=== PATIENT | male | born 1990 | race Caucasian/White ===

== ENCOUNTER 2021-03-26 18:57 | Emergency (ER) | payer SELFPAY ==
[2021-03-26 18:58] VITALS: BP 153/71; PULSE 71; RESP 16; TEMP 36.6; O2SAT 97; BMI 32.5
--- NOTE | 2021-03-26 19:46 | CT_ITS ---
STUDY: CT ABDOMEN AND PELVIS WITHOUT CONTRAST REASON FOR EXAM: Male, 30 years old. Kidney Stone RADIATION DOSAGE (If Supplied By Facility): CTDIvol = ( 13.90 ) mGy, DLP = ( 781.53 ) mGycm TECHNIQUE: Transaxial images were obtained from the dome of the diaphragm to the symphysis pubis without oral contrast, and without intravenous contrast. Sagittal and coronal images were reconstructed. Individualized dose optimization techniques were used for this CT. COMPARISON: None. FINDINGS: The visualized lung bases are unremarkable. The visualized portions of the heart are within normal limits. Normal liver. Normal gallbladder and extrahepatic biliary system. Normal spleen. Normal pancreas. Normal bilateral adrenal glands. Multiple small bilateral nonobstructing calyceal renal stones one at the right lower pole kidney one of the left lower pole kidney. There is a 7 mm obstructing stone in the distal left ureter with moderate left hydroureteronephrosis. Normal visualized stomach. Normal small intestine. Normal colon. The appendix is visualized and appears normal. Normal abdominal aorta. Normal inferior vena cava. Normal retroperitoneum. Normal urinary bladder. Normal visualized prostate gland. Normal abdominal wall. Normal osseous structures. CT/Abdomen/Pelvis without Cont IMPRESSION: 7 mm obstructing stone in the distal left ureter with moderate left hydroureteronephrosis. Electronically Signed: Sean Leija MD at 21:08 EDT Tel , Service support ,
[2021-03-26] MEDS: Ondansetron 4 MG/2 ML Vial IV (20:06)
[2021-03-26] MEDS: 0.9% Normal Saline 1,000 ML 250 ML IV (20:06)
[2021-03-26] MEDS: Ketorolac 15 MG/ML Vial IV (20:07)
[2021-03-26 20:17] LABS: Squamous Epithelial Cells - UA 0 SEEN /hpf (0-5)
[2021-03-26 20:18] LABS: Basophil# 0.03 X10^3/uL; Basophil% 0.3 % (0-1); Eosinophil# 0.16 X10^3/uL; Eosinophils% 1.8 % (0-5); Hematocrit 38.9 % (40-54); Hemoglobin 12.9 g/dL (13.0-16.5); Lymphocyte % 19.9 % (19-41); Mean Corp Hgb Conc 33.2 g/dL (32-36); Mean Corpuscular Hgb 28.9 pg (27.0-32.0); Mean Platelet Vol. 9.9 fl (6.2-12.0); Monocyte# 1.06 X10^3/uL; Monocyte% 11.7 % (0-10); NRBC Flagged by Analyzer 0 % (0-5); Neutrophil # 5.97 X10^3/uL (2.7-7.7); Platelet Count 221 K/mm3 (150-450); RBC Distribution Width CV 12.5 % (11.6-14.6); RBC Distribution Width SD 39.7 fl (35.1-43.9); Red Blood Count 4.47 M/mm3 (4.6-6.2); White Blood Count 9.1 K/mm3 (4.4-11.0)
[2021-03-26 20:20] LABS: Color, Urine Yellow (Yellow); Glucose, Dipstick Normal (Normal); Ketone-Dipstick Negative (Negative); Leukocyte Esterase-Dipstick Negative /ul (Negative); Nitrite-Dipstick Negative (Negative); Occult Blood-Urine 150 /ul (Negative); Protein-Dipstick 15 mg/dl (Negative); Urine Bilirubin Dipstick Negative (Negative); Urine Clarity Clear (Clear); Urine Urobilinogen Normal (Normal)
--- NOTE | 2021-03-26 20:35 | ED.VIS.GI ---
HPI HPI - GI History of Present Illness Chief Complaint: Flank Pain Narrative Narrative: Patient presenting for evaluation secondary to flank pain. Patient reports that he does have an underlying history of kidney stones around 6 months ago. Patient states that over the course of about the last week he has been dealing with symptoms consistent with a left-sided kidney stone. He reports that a week ago he had some hematuria the day following he started to develop some left-sided flank pain. It is left-sided radiates down into his pelvis and into his testicles. This been associated with urinary frequency. Patient denies any fevers. Patient denies any nausea or vomiting. Patient states that the pain got worse tonight which is why presented to the emergency department. Review of systems otherwise negative. [facility] Medical History Kidney stones Home Medications clindamycin HCl [Cleocin HCl] 300 mg PO Q6H #40 capsule 02/18/17 [Rx Last Taken Unknown] oxycodone-acetaminophen 1 - 2 tab PO Q6H PRN PRN #12 tab 02/18/17 [Rx Last Taken Unknown] oxycodone-acetaminophen [Percocet] 1 tab PO Q6H PRN 3 Days #12 tab 03/26/21 [Rx Last Taken Unknown] tamsulosin [Flomax] 0.4 mg PO DAILY #10 cap 03/26/21 [Rx Last Taken Unknown] Allergy/AdvReac Type Severity Reaction Status Date / Time acetaminophen [From Vicodin] Allergy Hives Verified 03/26/21 19:00 codeine Allergy Hives Verified 03/26/21 19:00 hydrocodone [From Vicodin] Allergy Hives Verified 03/26/21 19:00 morphine Allergy Hives Verified 03/26/21 19:00 prednisone AdvReac Other Verified 03/26/21 19:00 Social History Smoking Status: Current every day smoker tobacco type: cigarettes ROS ROS ED Constitutional Constitutional ED: Denies chills or fever(s) ENT ENT ED: Denies sore throat Cardiovascular Cardiovascular: Denies chest pain Respiratory/Chest Respiratory/Chest: Denies cough or dyspnea Gastrointestinal Gastrointestinal: Denies abdominal pain, constipation, diarrhea or nausea Genitourinary Genitourinary ED: Reports hematuria, urinary frequency and other Details: Left flank pain Musculoskeletal Musculoskeletal: Denies myalgias Integumentary Denies rash Neurologic Neurologic: Denies paresthesias or weakness Psychiatric Psychiatric: Denies depression Endocrine Endocrinology: Denies polyuria Hematologic/Lymphatic Hematologic/Lymphatic: Denies easy bleeding or easy bruising Allergic/Immunologic Allergic/Immunologic ED: Denies urticaria EXAM Physical Exam Const Vital Signs: 03/26/21 18:58 Temperature 98 F Temperature Source Temporal Pulse Rate 71 Respiratory Rate 16 Blood Pressure 153/71 H Blood Pressure Mean 98 Pulse Ox 97 Oxygen Delivery Method Room Air Positive well nourished and well developed General Appearance ED: well developed and NAD HEENT normocephalic and atraumatic Eyes EOMs intact bilaterally General Eye ED: Negative for pale conjunctiva or scleral icterus Neck no lymphadenopathy and supple Resp normal respiratory effort and clear to auscultation bilaterally Cardio regular rate, regular rhythm, no murmurs and peripheral pulses 2+ throughout GI non-distended and no masses GI Narrative: Very minimal left lower quadrant abdominal tenderness Palpation: soft and tender LLQ; Negative for guarding, rigid or rebound tenderness present Back/Spine no CVA tenderness Extremity full ROM General Extremety ED: Negative for edema General Extremity: Negative for edema Neuro moves all extremities and no sensory deficits noted Sensorium / Orientation: alert, oriented to person, oriented to place and oriented to time Motor Exam: strength 5/5 throughout Psych mental status grossly normal Skin Rashes: no rashes MDM MDM MDM Narrative Medical decision making narrative: Patient presented secondary to flank pain and concern for the possibility of a kidney stone. IV was tablets patient was given Toradol Zofran and fluids. CBC does not demonstrate a leukocytosis, chemistry demonstrates patient have a creatinine of 1.4 I do not have a prior baseline to compare this to. No significant electrolyte derangements. Urinalysis shows only blood no leukocytes. CT abdomen and pelvis shows a 7 mm obstructing stone in the distal left ureter with some moderate hydronephrosis. Repeat evaluation of the patient at 2130 shows him to have significant symptomatic improvement. At this point given the patient's improvement of pain, lack of infection I do believe these appropriate to go home. 7 mm stone is on the upper limits of what the patient might be able to pass, so I did recommend that he is absolutely going to need to follow-up with a urologist. I also do not have a baseline creatinine to know if he is dealing with any sort of acute kidney injury. He was hydrated in the emergency department. He was educated on signs and symptoms for which to return. He was sent home with a course of Percocet and Flomax. Patient was discharged in improved condition. Lab Data Labs: Laboratory Results - last 24 hr 03/26/21 03/26/21 03/26/21 20:05 20:10 20:10 WBC 9.1 RBC 4.47 L Hgb 12.9 L Hct 38.9 L MCV 87.0 MCH 28.9 MCHC 33.2 RDW Std Deviation 39.7 RDW Coeff of Syed 12.5 Plt Count 221 MPV 9.9 Immature Gran % (Auto) 0.300 Neut % (Auto) 66.0 Lymph % (Auto) 19.9 Coffee % (Auto) 11.7 H Eos % (Auto) 1.8 Baso % (Auto) 0.3 Absolute Neuts (auto) 6.0 Absolute Lymphs (auto) 1.80 Nucleated RBC % 0 Sodium 141 Potassium 3.7 Chloride 106 Carbon Dioxide 29.0 Anion Gap 6 BUN 16 Creatinine 1.46 H Estim Creat Clear Calc 72.64 Est GFR (MDRD) Af Amer 72 Est GFR (MDRD) Non-Af 59 L BUN/Creatinine Ratio 11.0 Glucose 98 Calcium 8.9 Urine Color Yellow Urine Clarity Clear Urine pH 6.0 Ur Specific [place] 1.030 Urine Protein 15 H Urine Glucose (UA) Normal Urine Ketones Negative Urine Occult Blood 150 H Urine Nitrite Negative Urine Bilirubin Negative Urine Urobilinogen Normal Ur Leukocyte Esterase Negative Radiography Diagnostic Testing: Radiology Impression Abdomen/Pelvis CT 03/26/21 19:46 IMPRESSION: 7 mm obstructing stone in the distal left ureter with moderate left hydroureteronephrosis. Electronically Signed: Sean Leija MD at 21:08 EDT Tel , Service support , Discharge Plan Triage Chief Complaint: Flank Pain ED Provider: Bebeto Fontenot Dx/Rx/DC Orders Clinical Impression: Urolithiasis Instructions: ED Kidney Stone w/ Colic Prescriptions: New tamsulosin [Flomax] 0.4 mg capsule 0.4 mg PO DAILY Qty: 10 RF: 0 oxycodone-acetaminophen [Percocet] 5-325 mg tablet 1 tab PO Q6H PRN (Reason: pain) 3 Days Qty: 12 RF: 0 No Action clindamycin HCl [Cleocin HCl] 300 MG capsule 300 mg PO Q6H Qty: 40 RF: 0 oxycodone-acetaminophen 1 TABLET tablet 1 - 2 tab PO Q6H PRN PRN (Reason: Pain) Qty: 12 RF: 0 Primary Care Provider: Care Physician,No Primary Referrals: Mehrdad Villasenor MD [STAFF PHYSICIAN] - 3-5 Days Care Physician,No Primary [Primary Care Provider] - Disposition Disposition: Home, Self Care
[2021-03-26 20:36] LABS: Anion Gap 6 (5-15); BUN 16 mg/dL (7-18); Calcium,Total 8.9 mg/dL (8.5-10.1); Chloride 106 mmol/L (98-107); Creatinine, Serum 1.46 mg/dL (0.70-1.30); EST Glomerular Filtration Rate 59 mL/min (>60); Est Glom Filt Rate - Afr Amer 72 mL/min (>60); Estimated Creatinine Clearance 72.64 ml/min; Glucose 98 mg/dL (74-106); Potassium 3.7 mmol/L (3.5-5.1); Sodium Level 141 mmol/L (136-145)
[2021-03-26 22:18] LABS: Red Blood Cells-Urine 10-25 SEEN /hpf (0-5); White Blood Cells 5-10 SEEN /hpf (0-5)
[2021-03-26 22:19] LABS: Bacteria RARE /hpf (None Seen); Mucous, Urine 1+ /hpf (<or=2+)
== END 2021-03-26 21:45 | disposition home or self-care (01) ==
PROVIDERS: Emergency Provider Emergency Medicine
DX: N13.2 Hydronephrosis with renal and ureteral calculous obstruction (principal); Z87.442 Personal history of urinary calculi; F17.210 Nicotine dependence, cigarettes, uncomplicated
CPT/HCPCS: 74176; 80048; 81001; 85025; 96361; 96374; 96375; 99282; J7030; J2405

== ENCOUNTER 2021-05-01 16:38 | Emergency (ER) | payer SELFPAY ==
[2021-05-01 16:39] VITALS: BP 154/88; PULSE 59; RESP 14; TEMP 36.8; O2SAT 100; BMI 34.2
--- NOTE | 2021-05-01 17:13 | ED.VIS.GI ---
HPI HPI - GI History of Present Illness Chief Complaint: Flank Pain Informant: patient and spouse/S.O. Abdominal Pain/Flank Pain Onset: Days Context: Gradual Onset Timing: Intermittent Quality: Sharp Location: Left Flank Current Severity: Gone Maximum Severity: Moderate Nausea/Vomiting/Emesis GI Symptom: Negative for Nausea and Vomiting Diarrhea/Melena/Hematochezia GI Symptom: Negative for Diarrhea, Melena and Hematochezia Associated Symptoms Associated Symptoms: Positive for Hematuria; Negative for Dysuria, Frequency and Urgency Narrative Narrative: 30-year-old male with a no. History of kidney stones. States he believes this is his fifth kidney stone. Is never needed surgery. Says since 3 AM this morning he had gross hematuria. He did have left flank pain on Thursday it resolved to return today. He denies vomiting or diarrhea. No fever. Prior similar symptoms: Yes Recent Illness/Hospitalization: No PFSH PFSH Medical History Kidney stones Home Medications cephalexin 500 mg PO Q6H 7 Days #28 cap 05/01/21 [Rx Last Taken Unknown] oxycodone-acetaminophen [Percocet] 1 tab PO Q4H PRN 4 Days #14 tab 05/01/21 [Rx Last Taken Unknown] Allergy/AdvReac Type Severity Reaction Status Date / Time acetaminophen [From Vicodin] Allergy Hives Verified 05/01/21 16:39 codeine Allergy Hives Verified 05/01/21 16:39 hydrocodone [From Vicodin] Allergy Hives Verified 05/01/21 16:39 morphine Allergy Hives Verified 05/01/21 16:39 prednisone AdvReac Other Verified 05/01/21 16:39 Social History Smoking Status: Current every day smoker tobacco type: cigarettes ROS ROS ED ROS Narrative Left flank pain. Review of Systems ROS Unobtainable: Denies due to encephalopathy Constitutional Constitutional ED: Denies chills, fever(s) or subjective ENT ENT ED: Denies ear pain, rhinorrhea or sore throat Cardiovascular Cardiovascular: Denies chest pain Respiratory/Chest Respiratory/Chest: Denies cough or dyspnea Gastrointestinal Gastrointestinal: Reports abdominal pain Genitourinary Genitourinary ED: Reports hematuria; Denies dysuria Musculoskeletal Musculoskeletal: Denies arthralgias or myalgias Integumentary Denies rash Neurologic Neurologic: Denies headache(s) Psychiatric Psychiatric: Denies depression Endocrine Endocrinology: Denies polyuria Hematologic/Lymphatic Hematologic/Lymphatic: Denies easy bruising Allergic/Immunologic Allergic/Immunologic ED: Denies urticaria EXAM Physical Exam Narrative Exam Narrative: 30-year-old male with left flank pain currently is pain-free. Vital signs stable afebrile. HEENT exam normal. Lungs are clear. Heart regular rhythm. Abdomen soft nontender normal bowel sounds no peritoneal signs. Back nontender. Moving all 4 extremities. Nontender no edema. Neurologically awake alert with no focal motor deficits. Const Vital Signs: 05/01/21 16:39 Temperature 98.2 F Temperature Source Temporal Pulse Rate 59 L Respiratory Rate 14 Blood Pressure 154/88 H Blood Pressure Mean 110 Pulse Ox 100 Oxygen Delivery Method Room Air Positive well nourished, well developed and obese; Negative for cachectic, contractures or unkempt General Appearance ED: well developed and NAD; Negative for unkempt, cachectic, contractures or pallor Nutritional Appearance: obese; Negative for cachectic HEENT Reports moist mucous membranes normocephalic and atraumatic Eyes PERRL and EOMs intact bilaterally Neck no lymphadenopathy, supple and no JVD General: Negative for tenderness Resp normal respiratory effort and clear to auscultation bilaterally Auscultation: Negative for rales, rhonchi or wheezes Cardio regular rhythm, S1 normal heart sound, S2 normal heart sound and no murmurs GI non-tender, non-distended and no masses Auscultation: normoactive bowel sounds Palpation: soft; Negative for tender, guarding or rigid Back/Spine no CVA tenderness General Back: Negative for CVA tenderness Extremity full ROM General Extremety ED: Negative for edema or tenderness General Extremity: Negative for edema Neuro moves all extremities Sensorium / Orientation: alert, oriented to person, oriented to place and oriented to time; Negative for orientation impaired, confused, lethargic or stuporous Motor Exam: strength 5/5 throughout Psych mental status grossly normal Appearance: Negative for unkempt Skin no wounds General Skin Exam: Negative for jaundice or pallor Lesions: no lesions Rashes: no rashes MDM MDM MDM Narrative Medical decision making narrative: 30-year-old male left flank pain history of kidney stones. CAT scan labs being obtained. Being treated with IV Dilaudid and Toradol. Repeat exam patient doing well at 8:26 PM. He will be given another half milligram of Dilaudid and discharged home. He will follow-up with urologist as needed or return if worse. Patient will be placed on a prescription for Keflex that is for a folliculitis on his hand and abdomen from pulling hair out. It is not related to his kidney stone. Lab Data Attestation: I reviewed the patient's lab results. Lab results narrative: Electrolytes unremarkable normal gap of 5 normal BUN and creatinine of 1 urine shows 250 occult blood negative nitrates greater than 100 red cells no whites and no bacteria consistent with a kidney stone. CAT scan consistent with 2 left ureteral calculi of 7 mm and 2 mm. 7 mm stone is in the distal ureter. Labs: Laboratory Results - last 24 hr 05/01/21 05/01/21 15:25 16:50 Sodium 140 Potassium 4.1 Chloride 105 Carbon Dioxide 30.0 Anion Gap 5 BUN 15 Creatinine 1.07 Estim Creat Clear Calc 99.11 Est GFR (MDRD) Af Amer 103 Est GFR (MDRD) Non-Af 85 BUN/Creatinine Ratio 14.0 Glucose 79 Calcium 9.5 Urine Color Red Urine Clarity Cloudy Urine pH 6.0 Ur Specific [place] 1.020 Urine Protein 100 H Urine Glucose (UA) Normal Urine Ketones 5 H Urine Occult Blood 250 H Urine Nitrite Negative Urine Bilirubin Negative Urine Urobilinogen Normal Ur Leukocyte Esterase 25 H Urine RBC > 100 SEEN Urine WBC 0 SEEN Ur Squamous Epith Cells 0 SEEN Urine Bacteria 0 SEEN Urine Mucus 0 SEEN Radiography Diagnostic Testing: Clinical Impression(s) from Imaging Studies Abdomen/Pelvis CT 05/01/21 17:46 IMPRESSION: Obstructing 7 mm stone in the distal left ureter and 2 mm stone in the proximal left ureter with associated mild left hydroureteronephrosis. Nonobstructing stones seen in the right kidney, largest measuring 3 mm and in the lower pole. Patchy opacities in the bilateral lung bases concerning for infection. Electronically Signed: Preet Mason MD at 18:12 EDT Tel , Service support , Discharge Plan Triage Chief Complaint: Flank Pain ED Provider: Caesar Johnson Dx/Rx/DC Orders Clinical Impression: Kidney stone on left side, Folliculitis Instructions: ED Folliculitis, ED Kidney Stone w/ Colic Prescriptions: New oxycodone-acetaminophen [Percocet] 5-325 mg tablet 1 tab PO Q4H PRN (Reason: pain) 4 Days Qty: 14 RF: 0 cephalexin 500 mg capsule 500 mg PO Q6H 7 Days Qty: 28 RF: 0 Primary Care Provider: Care Physician,No Primary Referrals: Mehrdad Villasenor MD [STAFF PHYSICIAN] - 3-5 Days if not improving Care Physician,No Primary [Primary Care Provider] - Activity Restrictions/Additional Instructions: Plenty of fluids and rest. Strain your urine for the passage of both stones. You have both a 7 mm stone and a 2 mm stone on the left that are passing. Percocet for pain. Make sure you drink plenty of fluids to prevent constipation. Also potentially use a stool softener and make sure you are eating plenty of fiber. Keflex as antibiotic for your folliculitis. Stop pulling out the hair. Follow-up with the urologist as needed if not improving or having worse pain. Return if fever or feeling a lot worse. Disposition Disposition: Home, Self Care
[2021-05-01] MEDS: Ketorolac 30 MG/ML Syringe IV (17:20)
[2021-05-01] MEDS: Ondansetron 4 MG/2 ML Vial IV (17:20)
[2021-05-01] MEDS: HYDROmorphone 1 MG/ML Syringe IV (17:20)
[2021-05-01 17:38] LABS: Bacteria 0 SEEN /hpf (None Seen); Mucous, Urine 0 SEEN /hpf (<or=2+); Squamous Epithelial Cells - UA 0 SEEN /hpf (0-5); White Blood Cells 0 SEEN /hpf (0-5)
[2021-05-01 17:39] LABS: Anion Gap 5 (5-15); BUN 15 mg/dL (7-18); Calcium,Total 9.5 mg/dL (8.5-10.1); Chloride 105 mmol/L (98-107); Creatinine, Serum 1.07 mg/dL (0.70-1.30); EST Glomerular Filtration Rate 85 mL/min (>60); Est Glom Filt Rate - Afr Amer 103 mL/min (>60); Estimated Creatinine Clearance 99.11 ml/min; Glucose 79 mg/dL (74-106); Potassium 4.1 mmol/L (3.5-5.1); Sodium Level 140 mmol/L (136-145)
--- NOTE | 2021-05-01 17:46 | CT_ITS ---
INDICATION: left flank pain EXAMINATION: CT Abdomen And Pelvis W/O Contrast Injection TECHNIQUE: Helically acquired images were obtained of the abdomen and pelvis without the use of IV contrast. A radiation dose optimization technique was used for this scan. Oral contrast: None. COMPARISON: 03/26/2021 FINDINGS: Evaluation of the solid organs and vascular structures is limited without intravenous contrast. Visualized lung bases: Patchy opacities in the bilateral lung bases. Liver: Unremarkable Gallbladder: Unremarkable Spleen: Unremarkable Pancreas: Unremarkable Adrenal Glands: Unremarkable Kidneys: Obstructing 7 mm stone in the distal left ureter and 2 mm stone in the proximal left ureter with associated mild left hydroureteronephrosis. Nonobstructing stones seen in the right kidney, largest measuring 3 mm and in the lower pole. Vasculature: Unremarkable GI Tract: Unremarkable Lymphadenopathy: None Peritoneum: No ascites. Bladder: Unremarkable Reproductive organs: Unremarkable Bones/Soft tissues: No suspicious osseous or soft tissue lesions CT/Abdomen/Pelvis without Cont IMPRESSION: Obstructing 7 mm stone in the distal left ureter and 2 mm stone in the proximal left ureter with associated mild left hydroureteronephrosis. Nonobstructing stones seen in the right kidney, largest measuring 3 mm and in the lower pole. Patchy opacities in the bilateral lung bases concerning for infection. Electronically Signed: Preet Mason MD at 18:12 EDT Tel , Service support ,
[2021-05-01 18:00] LABS: Color, Urine Red (Yellow); Glucose, Dipstick Normal (Normal); Ketone-Dipstick 5 mg/dl (Negative); Leukocyte Esterase-Dipstick 25 /ul (Negative); Nitrite-Dipstick Negative (Negative); Occult Blood-Urine 250 /ul (Negative); Protein-Dipstick 100 mg/dl (Negative); Urine Bilirubin Dipstick Negative (Negative); Urine Clarity Cloudy (Clear); Urine Urobilinogen Normal (Normal)
[2021-05-01 18:14] LABS: Red Blood Cells-Urine > 100 SEEN /hpf (0-5)
[2021-05-01] MEDS: HYDROmorphone 0.5 MG/0.5 ML SYRINGE IV (20:34)
[2021-05-01 20:50] VITALS: BP 148/79; PULSE 63; RESP 16; O2SAT 100
== END 2021-05-01 20:57 | disposition home or self-care (01) ==
PROVIDERS: Emergency Provider Emergency Medicine
DX: N13.2 Hydronephrosis with renal and ureteral calculous obstruction (principal); L73.9 Follicular disorder, unspecified; Z87.442 Personal history of urinary calculi; F17.210 Nicotine dependence, cigarettes, uncomplicated
CPT/HCPCS: 74176; 80048; 81001; 96374; 96375; 96376; 99282; A4216; J2405

== ENCOUNTER → 2025-06-06 | Outpatient (CLI) | payer SELFPAY ==
[2025-06-06 10:22] LABS: Hematocrit 41.8 % (40-54); Hemoglobin 14.4 g/dL (13.0-16.5); Immature Granulocytes Count 0.030 X10^3/uL (0.0-0.0); Mean Corp Hgb Conc 34.4 g/dL (32-36); Mean Corpuscular Volume 85.0 fL (80-94); Mean Platelet Vol. 10.3 fl (6.2-12.0); NRBC Flagged by Analyzer 0 % (0-5); Platelet Count 273 K/mm3 (150-450); RBC Distribution Width CV 12.3 % (11.6-14.6); RBC Distribution Width SD 38.2 fl (35.1-43.9); Red Blood Count 4.92 M/mm3 (4.6-6.2); White Blood Count 8.1 K/mm3 (4.4-11.0)
[2025-06-06 11:43] LABS: AST(SGOT) 24 U/L (<=37); Alanine Aminotransfer ALT/SGPT 37 U/L (<=46); Albumin, Serum 4.6 g/dL (3.5-5.0); Alkaline Phosphatase 79 U/L (40-129); Anion Gap 11 (5-15); BUN 14 mg/dL (4-19); BUN/Creat Ratio 14.5 RATIO (10-20); Calcium,Total 9.5 mg/dL (7.6-11.0); Carbon Dioxide 26.0 mmol/L (21.0-32.0); Chloride 103 mmol/L (98-108); Cholesterol 217 mg/dL (<=200); Globulin 3.0 g/dL (2.2-4.2); Glucose 103 mg/dL (70-99); Low Density Lipoprotein Calc. 161 mg/dL; Potassium 4.3 mmol/L (3.3-5.1); Triglycerides 78 mg/dL; Very Low Density Lipoprotein 16 mg/dL (5-40); cholesterol:hdl ratio screen 5.17
== END | disposition home or self-care (01) ==
DX: I10 Essential (primary) hypertension (principal)
CPT/HCPCS: 36415; 80053; 80061; 83036; 85025